=== PATIENT | female | born 1990 | race Caucasian/White ===

== ENCOUNTER 2017-05-27 06:33 | Day surgery (SDC) | payer MEDICAID ==
[~2017-05-27 06:33] MED LIST: GINK40TA2 PO; GINS100C PO; IBUP-1222 PO; MULT-6 PO; None at this Time; OXYC-302 PO; VITA150T PO
[2017-05-27] MEDS ORDERED: OXYMETAZOLINE NASAL SPRAY 0.05%, 15ML ONE (06:44)
[2017-05-27] MEDS ORDERED: LACTATED RINGERS 1,000 ML IV SCH (07:09)
[2017-05-27 07:25] VITALS: BP 111/76
[2017-05-27 08:20] LABS: HCG UR OBC PASS
[2017-05-27] MEDS ORDERED: FENTANYL PF 500 MCG/10ML ONE (08:44)
[2017-05-27] MEDS ORDERED: hydrALAzine 20 MG/ML, 1ML IV PRN (09:00)
[2017-05-27] MEDS ORDERED: LABETALOL 5MG/ML, 20ML IV PRN (09:00)
[2017-05-27] MEDS ORDERED: OXYcodone 5 MG/5 ML ORAL.SOL UDC PO PRN (09:00)
[2017-05-27] MEDS ORDERED: HYDROmorphone 1 MG/ML, 1ML IV PRN (09:00)
[2017-05-27] MEDS ORDERED: ACETAMINOPHEN 325 MG TABLET PO PRN (09:00)
[2017-05-27] MEDS ORDERED: ONDANSETRON 2MG/ML, 2ML IVPush PRN (09:00)
[2017-05-27] MEDS ORDERED: ACETAMINOPHEN 650 MG/20.3 ML UDC ONE (09:38)
[2017-05-27] MEDS ORDERED: OXYcodone 5 MG/5 ML ORAL.SOL UDC ONE (09:38)
[2017-05-27] MEDS ORDERED: FENTANYL PF 100 MCG/2ML ONE (09:38)
[2017-05-27] MEDS: FENTANYL PF 100 MCG/2ML IV PRN ×2 (09:40→09:52)
[2017-05-27] MEDS ORDERED: ONDANSETRON 2MG/ML, 2ML ONE ×2 (09:41→16:26)
[2017-05-27] MEDS ORDERED: PLEASE ENTER HEIGHT AND WEIGHT MC SCH (10:00)
[2017-05-27] MEDS ORDERED: DEXAMETHASONE 4 MG/ML, 5ML ONE (16:26)
[2017-05-27] MEDS ORDERED: METOCLOPRAMIDE 5 MG/ML, 2ML ONE (16:26)
[2017-05-27] MEDS ORDERED: SUCCINYLCHOLINE 20 MG/ML, 10ML ONE (16:26)
[2017-05-27] MEDS ORDERED: PROPOFOL 10 MG/ML, 20ML ONE (16:26)
[2017-05-27] MEDS ORDERED: ROCURONIUM 10 MG/ML ONE (16:26)
== END 2017-05-27 11:30 ==
LOC: OUT 06:33
PROVIDERS: ATTEND Otolaryngology
DX: J35.3 Hypertrophy of tonsils with hypertrophy of adenoids (principal); E11.9 Type 2 diabetes mellitus without complications; Z88.8 Allergy status to other drugs, medicaments and biological substances; Z91.040 Latex allergy status
CPT/HCPCS: 42821; 81025; 88304; 88329; J0330; J1100; J2405; J2704; J2765; J3010

== ENCOUNTER 2017-08-08 21:46 | Emergency (ER) | payer MEDICAID ==
[~2017-08-08] VITALS: Ht 175.3 cm; Wt 120.9 kg
[~2017-08-08 21:46] MED LIST changes: +GINK40TA PO; -GINK40TA2 PO; -GINS100C PO; +GINS100C3 PO
[2017-08-08 21:47] VITALS: BP 122/72
[2017-08-08] MEDS ORDERED: KETOROLAC 30 MG/1 ML ONE (22:16)
[2017-08-08] MEDS ORDERED: KETOROLAC 30 MG/1 ML IM ONE (22:30)
== END 2017-08-08 23:20 | disposition home or self-care (01) ==
LOC: ED 23:12
DX: S80.02XA Contusion of left knee, initial encounter (principal); G89.11 Acute pain due to trauma; F32.9 Major depressive disorder, single episode, unspecified; G43.909 Migraine, unspecified, not intractable, without status migrainosus; Z90.49 Acquired absence of other specified parts of digestive tract; W10.9XXA Fall (on) (from) unspecified stairs and steps, initial encounter; Y93.E6 Activity, residential relocation; Y92.89 Other specified places as the place of occurrence of the external cause; Y99.8 Other external cause status
CPT/HCPCS: 73564; 96372; 99284; J1885

== ENCOUNTER 2018-08-02 06:41 | Emergency (ER) | payer MEDICAID ==
[~2018-08-02] VITALS: Ht 172.7 cm; Wt 88.3 kg
[~2018-08-02 06:41] MED LIST changes: +OXYCODONE PO
[2018-08-02 06:44] VITALS: BP 104/70
== END 2018-08-02 09:47 | disposition home or self-care (01) ==
LOC: ED 09:10
DX: S93.491A Sprain of other ligament of right ankle, initial encounter (principal); S93.621A Sprain of tarsometatarsal ligament of right foot, initial encounter; G43.909 Migraine, unspecified, not intractable, without status migrainosus; E66.9 Obesity, unspecified; X50.1XXA Overexertion from prolonged static or awkward postures, initial encounter; Y93.K1 Activity, walking an animal; Y92.410 Unspecified street and highway as the place of occurrence of the external cause; Y99.8 Other external cause status
CPT/HCPCS: 99284

== ENCOUNTER → 2018-09-16 | Outpatient (CLI) | payer MEDICAID ==
[~2018-09-16] MED LIST changes: +OMNIPAQUE 350 MG/ML, 100ML BOTTLE ONE
== END | disposition home or self-care (01) ==
LOC: RAD 11:32
PROVIDERS: ATTEND Family Medicine
DX: N83.201 Unspecified ovarian cyst, right side (principal); Z90.49 Acquired absence of other specified parts of digestive tract
CPT/HCPCS: 74177; Q9967

== ENCOUNTER 2019-02-03 12:01 | Emergency (ER) | payer MEDICAID ==
[~2019-02-03] VITALS: Ht 172.7 cm; Wt 90.3 kg
[~2019-02-03 12:01] MED LIST changes: -OMNIPAQUE 350 MG/ML, 100ML BOTTLE ONE
[2019-02-03] MEDS ORDERED: KETOROLAC 30 MG/1 ML ONE (12:24)
--- NOTE | 2019-02-03 12:28 | NUR ---
TORADOL GIVEN PER ERP ORDER.
[2019-02-03] MEDS ORDERED: KETOROLAC 30 MG/1 ML IM ONE (12:30)
[2019-02-03 13:31] VITALS: BP 122/61
== END 2019-02-03 13:33 | disposition home or self-care (01) ==
LOC: ED 13:25
DX: S90.01XA Contusion of right ankle, initial encounter (principal); S90.31XA Contusion of right foot, initial encounter; F32.9 Major depressive disorder, single episode, unspecified; Z90.49 Acquired absence of other specified parts of digestive tract; X58.XXXA Exposure to other specified factors, initial encounter; Y93.89 Activity, other specified; Y92.009 Unspecified place in unspecified non-institutional (private) residence as the place of occurrence of the external cause; Y99.8 Other external cause status
CPT/HCPCS: 73610; 73630; 96372; 99283; J1885

== ENCOUNTER 2019-08-18 08:10 | Outpatient (CLI) | payer OTHER ==
[~2019-08-18 08:10] MED LIST changes: +VITA100T3 PO
[2019-08-18] MEDS ORDERED: ACET-1600 PO (08:52)
[2019-08-18 09:43] LABS: BASOPHILS # (AUTO) 0.03 x10^3/uL (0-0.1); BASOPHILS % (AUTO) 0 % (0-1); EOSINOPHILS # (AUTO) 0.12 x10^3/uL (0-0.4); EOSINOPHILS % (AUTO) 2 % (1-7); LYMPHOCYTES # (AUTO) 2.05 x10^3/uL (1-3.4); LYMPHOCYTES % (AUTO) 30 % (22-44); MD NO; MEAN CORPUSCULAR HEMOGLOBIN 29.5 pg (27.0-34.8); MEAN CORPUSCULAR HGB CONC 33.3 g/dL (32.4-35.8); MEAN CORPUSCULAR VOLUME 88.7 fL (80-100); MEAN PLATELET VOLUME 7.1 fL (7.4-10.4); MONOCYTES # (AUTO) 0.42 x10^3/uL (0.2-0.8); MONOCYTES % (AUTO) 6 % (2-9); NEUTROPHILS # (AUTO) 4.18 x10^3/uL (1.8-6.8); NEUTROPHILS % (AUTO) 62 % (42-75); PLATELET COUNT 292 x10^3/uL (130-400); RED BLOOD COUNT 4.51 x10^6/uL (3.82-5.3)
[2019-08-18 09:45] LABS: HCG UR SG 1.025 (1.003-1.030)
[2019-08-18 09:53] LABS: ANION GAP 3 mmol/L (5-15); CALCIUM 8.7 mg/dL (8.5-10.1); CHLORIDE 109 mmol/L (98-107); CREATININE 0.62 mg/dL (0.55-1.02)
== END 2019-08-18 23:59 | disposition home or self-care (01) ==
LOC: STAR 08:10
PROVIDERS: ATTEND Obstetrics & Gynecology Gynecology
DX: Z01.818 Encounter for other preprocedural examination (principal); N94.10 Unspecified dyspareunia; N83.209 Unspecified ovarian cyst, unspecified side; N80.9 Endometriosis, unspecified; N93.9 Abnormal uterine and vaginal bleeding, unspecified
CPT/HCPCS: 36415; 80048; 81025; 85025

== ENCOUNTER 2019-08-24 12:36 | Observation (INO) | payer OTHER ==
[~2019-08-24] VITALS: Ht 172.7 cm; Wt 98.0 kg
[~2019-08-24 12:36] MED LIST changes: +ACET-1600 PO
[2019-08-24] MEDS ORDERED: LACTATED RINGERS 1,000 ML IV SCH (12:50)
[2019-08-24] MEDS ORDERED: EPINEPHRINE 1 MG/ML, 1ML ONE (13:57)
[2019-08-24] MEDS ORDERED: BUPIVACAINE/PF 0.25% ONE (13:57)
[2019-08-24] MEDS ORDERED: INDIGO CARMINE 0.8%, 5ML ONE (13:58)
[2019-08-24] MEDS ORDERED: MIDAZOLAM 1 MG/ML, 2ML ONE (14:37)
[2019-08-24] MEDS ORDERED: FENTANYL PF 250 MCG/5ML ONE ×2 (14:37→16:17)
[2019-08-24] MEDS ORDERED: SCOPOLAMINE PATCH, 1.5MG PATCH.TD72 TD ONE (14:47)
[2019-08-24] MEDS ORDERED: ACETAMINOPHEN 500 MG TABLET ONE (14:47)
[2019-08-24] MEDS ORDERED: GABAPENTIN 300 MG CAPSULE ONE (14:47)
[2019-08-24] MEDS ORDERED: ALBUTEROL SULFATE 2.5 MG/3 ML NPPB PRN (16:00)
[2019-08-24] MEDS ORDERED: MEPERIDINE/PF 25MG/0.5ML IVPush PRN (16:00)
[2019-08-24] MEDS ORDERED: DIAZEPAM 5 MG/ML, 2ML IVPush PRN (16:00)
[2019-08-24] MEDS ORDERED: HYDROmorphone 2 MG/ML, 1ML IVPush PRN ×2 (16:00→17:30)
[2019-08-24] MEDS ORDERED: OXYcodone 5 MG/5 ML ORAL.SOL UDC PO PRN ×2 (16:00→17:30)
[2019-08-24] MEDS ORDERED: FENTANYL PF 100 MCG/2ML IV PRN (16:00)
[2019-08-24] MEDS ORDERED: PROMETHAZINE 25 MG/ML, 1ML IV PRN (16:00)
[2019-08-24] MEDS ORDERED: hydrALAzine 20 MG/ML, 1ML IV PRN (16:00)
[2019-08-24] MEDS ORDERED: LABETALOL 5MG/ML, 20ML IV PRN (16:00)
[2019-08-24] MEDS ORDERED: SUGAMMADEX 200 MG/2 ML IVPush ONE (17:02)
[2019-08-24] MEDS ORDERED: DEXAMETHASONE 4 MG/ML, 1ML ONE (17:04)
[2019-08-24] MEDS ORDERED: ROCURONIUM 10MG/ML,5ML ONE (17:04)
[2019-08-24] MEDS ORDERED: ONDANSETRON 2MG/ML, 2ML ONE (17:04)
[2019-08-24] MEDS ORDERED: SUCCINYLCHOLINE 20 MG/ML, 10ML ONE (17:04)
[2019-08-24] MEDS ORDERED: PROPOFOL 10 MG/ML, 20ML ONE (17:04)
[2019-08-24] MEDS ORDERED: CEFAZOLIN 1,000 MG ONE (17:04)
[2019-08-24] MEDS ORDERED: NEOSTIGMINE 1 MG/ML, 10ML ONE (17:04)
[2019-08-24] MEDS ORDERED: GLYCOPYRROLATE 0.2MG/1ML, 5ML ONE (17:04)
[2019-08-24] MEDS ORDERED: OXYcodone 5 MG/5 ML ORAL.SOL UDC ONE (17:11)
[2019-08-24] MEDS ORDERED: HYDROmorphone 1 MG/ML, 1ML VIAL ONE (17:11)
[2019-08-24] MEDS ORDERED: FENTANYL PF 100 MCG/2ML ONE (17:11)
[2019-08-24] MEDS ORDERED: KETOROLAC 30 MG/1 ML ONE (17:21)
[2019-08-24] MEDS ORDERED: morphine SULFATE 10 MG/ML, 1ML IV PRN (19:30)
[2019-08-24] MEDS ORDERED: KETOROLAC 30 MG/1 ML IV PRN (19:30)
[2019-08-24] MEDS ORDERED: ONDANSETRON 2MG/ML, 2ML IV PRN (19:30)
[2019-08-24 20:52] VITALS: BP 118/75
[2019-08-24] MEDS: SODIUM CHLORIDE FLUSH 10ML SYR IVF SCH (21:00)
[2019-08-24] MEDS ORDERED: ZOLPIDEM 5MG TABLET PO PRN (21:00)
[2019-08-24] MEDS: DOCUSATE 100 MG CAPSULE PO SCH (23:59)
[2019-08-25 00:10] VITALS: BP 88/60
[2019-08-25] MEDS: LACTATED RINGERS 1,000 ML IV SCH ×2 (01:00→07:27)
[2019-08-25] MEDS: KETOROLAC 30 MG/1 ML IV PRN ×2 (04:43→11:55)
[2019-08-25] MEDS ORDERED: ENOXAPARIN 40 MG/0.4 ML SQ SCH (06:00)
[2019-08-25] MEDS: SODIUM CHLORIDE FLUSH 10ML SYR IVF SCH (07:26)
[2019-08-25] MEDS: OXYcodone 5 MG/5 ML ORAL.SOL UDC PO PRN ×3 (07:26→11:55)
[2019-08-25] MEDS: DOCUSATE 100 MG CAPSULE PO SCH (07:26)
[2019-08-25 07:33] VITALS: BP 101/60
[2019-08-25] MEDS ORDERED: FLU VACC QS2019-20 36MOS UP/PF 0.5 ML IM-VACC ONE (11:00)
[2019-08-25 12:50] VITALS: BP 97/62
== END 2019-08-25 14:30 | disposition home or self-care (01) ==
LOC: OUT 12:36 → 4NE 18:54 → OUT 18:55 → 4NE 18:56 → DCLOUNGE 08-25 14:03
PROVIDERS: ADMIT Obstetrics & Gynecology Gynecology; ATTEND Obstetrics & Gynecology Gynecology
DX: N80.1 Endometriosis of ovary (principal); N93.9 Abnormal uterine and vaginal bleeding, unspecified; N94.10 Unspecified dyspareunia; Z98.84 Bariatric surgery status; D64.9 Anemia, unspecified; F32.9 Major depressive disorder, single episode, unspecified; N94.6 Dysmenorrhea, unspecified; G43.909 Migraine, unspecified, not intractable, without status migrainosus; Z23 Encounter for immunization
CPT/HCPCS: 58571; 81025; 88307; 90471; 90686; 96372; 96374; 96375; 96376; G0378; J0171; J0690; J1100; J1170; J1650; J1885; J2250; J2270; J2405; J2704; J3010; J3490; J7120; S2900; J2710; J0330

== ENCOUNTER 2019-08-30 17:55 | Emergency (ER) | payer OTHER ==
[~2019-08-30] VITALS: Ht 172.7 cm; Wt 98.0 kg
[2019-08-30 18:13] VITALS: BP 122/72
[2019-08-30] MEDS ORDERED: SODIUM CHLORIDE FLUSH 10ML SYR IVF ONE (18:30)
[2019-08-30 18:43] LABS: BASOPHILS # (AUTO) 0.05 x10^3/uL (0-0.1); BASOPHILS % (AUTO) 1 % (0-1); EOSINOPHILS # (AUTO) 0.37 x10^3/uL (0-0.4); EOSINOPHILS % (AUTO) 4 % (1-7); LYMPHOCYTES # (AUTO) 2.87 x10^3/uL (1-3.4); LYMPHOCYTES % (AUTO) 34 % (22-44); MD NO; MEAN CORPUSCULAR HEMOGLOBIN 29.9 pg (27.0-34.8); MEAN CORPUSCULAR HGB CONC 33.2 g/dL (32.4-35.8); MEAN CORPUSCULAR VOLUME 90.1 fL (80-100); MEAN PLATELET VOLUME 7.2 fL (7.4-10.4); MONOCYTES % (AUTO) 6 % (2-9); NEUTROPHILS # (AUTO) 4.61 x10^3/uL (1.8-6.8); NEUTROPHILS % (AUTO) 55 % (42-75); PLATELET COUNT 302 x10^3/uL (130-400); RED CELL DISTRIBUTION WIDTH 13.2 % (9.6-15.2)
[2019-08-30 18:56] LABS: ALANINE AMINOTRANSFERASE 37 U/L (12-78); ALBUMIN 3.4 g/dL (3.4-5.0); ANION GAP 5 mmol/L (5-15); CALCIUM 8.5 mg/dL (8.5-10.1); CHLORIDE 108 mmol/L (98-107); CREATININE 0.64 mg/dL (0.55-1.02)
[2019-08-30 18:58] LABS: ALKALINE PHOSPHATASE 83 U/L (45-117); BILIRUBIN,TOTAL 0.2 mg/dL (0.2-1.0); TOTAL PROTEIN 7.2 g/dL (6.4-8.2)
--- NOTE | 2019-08-30 19:01 | NUR ---
pt called to room from lobby
[2019-08-30 19:56] LABS: MICROSCOPIC NOT IND
[2019-08-30] MEDS ORDERED: OMNIPAQUE 350 MG/ML, 100ML BOTTLE ONE (19:56)
[2019-08-30 20:00] LABS: CULTURE INDICATED? NO
== END 2019-08-30 21:18 | disposition home or self-care (01) ==
LOC: ED 20:47
DX: K59.00 Constipation, unspecified (principal); I25.10 Atherosclerotic heart disease of native coronary artery without angina pectoris; E66.9 Obesity, unspecified; Z90.49 Acquired absence of other specified parts of digestive tract; Z87.891 Personal history of nicotine dependence
CPT/HCPCS: 36415; 71046; 74177; 80053; 81003; 85025; 99284; Q9967

== ENCOUNTER 2019-12-30 20:58 | Emergency (ER) | payer OTHER ==
[~2019-12-30] VITALS: Ht 172.7 cm; Wt 92.0 kg
[2019-12-30] MEDS ORDERED: MORPHINE SULFATE 4 MG/ML, 1ML ONE (21:09)
[2019-12-30] MEDS ORDERED: ONDANSETRON 2MG/ML, 2ML ONE (21:09)
--- NOTE | 2019-12-30 21:13 | NUR ---
Patient BIB [facility] s/p [facility]. Patient states she was looking for her dog and slipped down a bank on gravel. Patient c/o right hip pain and right elbow pain. Patient became dizzy afterward but states she gets dizzy often. Denies LOC or head trauma. Patient is in obvious pain. Respirations even and unlabored. No shortening or rotation noted. CMS present.
--- NOTE | 2019-12-30 21:14 | NUR ---
EMS REPORTS GIVING 100 MCG FENTANYL AND 4MG ZOFRAN DESKTOP SUPPORT MANAGER. PT PRESENTS W/ A PIV IN PLACE. PT REPORTS SHE WALKED FOR 2 HOURS POST FALL.
--- NOTE | 2019-12-30 21:15 | NUR ---
PT MEDICATED PER EMAR.
--- NOTE | 2019-12-30 21:17 | NUR ---
PT TO RAD.
[2019-12-30] MEDS ORDERED: MORPHINE SULFATE 4 MG/ML, 1ML IVPush PRN (21:30)
[2019-12-30] MEDS ORDERED: ONDANSETRON 2MG/ML, 2ML IVPush ONE (21:30)
[2019-12-30 21:33] VITALS: BP 123/41
--- NOTE | 2019-12-30 21:49 | NUR ---
ALL TESTS RESULTED. PT IS UP FOR RECHECK AT THIS TIME.
--- NOTE | 2019-12-30 21:51 | NUR ---
IN ROOM FOR RECHECK.
[2019-12-30] MEDS ORDERED: HYDROmorphone 1 MG/ML, 1ML INJ ONE (21:54)
[2019-12-30] MEDS ORDERED: HYDROmorphone 2 MG/ML, 1ML IVPush PRN (22:00)
--- NOTE | 2019-12-30 22:12 | NUR ---
PT PROVIDED W/ PANTS AFTER REPORTING SHE SOILED HERSELF.
--- NOTE | 2019-12-30 22:40 | NUR ---
PT AMBULATED W/ CRUTCHES STEADILY. VERBALIZED UNDERSTANDING OF DC INSTRUCTIONS.
== END 2019-12-30 22:41 | disposition home or self-care (01) ==
LOC: ED 22:37
DX: S76.011A Strain of muscle, fascia and tendon of right hip, initial encounter (principal); G43.909 Migraine, unspecified, not intractable, without status migrainosus; E66.9 Obesity, unspecified; I25.10 Atherosclerotic heart disease of native coronary artery without angina pectoris; Z90.49 Acquired absence of other specified parts of digestive tract; Z90.89 Acquired absence of other organs; Z68.30 Body mass index [BMI] 30.0-30.9, adult; W19.XXXA Unspecified fall, initial encounter; Y93.01 Activity, walking, marching and hiking; Y92.89 Other specified places as the place of occurrence of the external cause; Y99.8 Other external cause status
CPT/HCPCS: 73502; 96374; 96375; 99284; J1170; J2270; J2405

== ENCOUNTER 2020-07-21 09:49 | Emergency (ER) | payer OTHER ==
[~2020-07-21] VITALS: Ht 175.3 cm; Wt 97.0 kg
[2020-07-21 09:51] VITALS: BP 109/62
[2020-07-21] MEDS ORDERED: KETOROLAC 30 MG/1 ML ONE (10:12)
[2020-07-21] MEDS ORDERED: BENZONATATE 100 MG CAPSULE ONE (10:29)
[2020-07-21] MEDS ORDERED: KETOROLAC 30 MG/1 ML IM ONE (10:30)
[2020-07-21] MEDS ORDERED: BENZONATATE 100 MG CAPSULE PO ONE (10:30)
[2020-07-21 10:53] LABS: BASOPHILS % (AUTO) 0 % (0-1); EOSINOPHILS % (AUTO) 1 % (1-7); LYMPHOCYTES % (AUTO) 36 % (22-44); MEAN CORPUSCULAR HEMOGLOBIN 28.9 pg (27.0-34.8); MEAN PLATELET VOLUME 7.7 fL (7.4-10.4); MONOCYTES % (AUTO) 9 % (2-9); NEUTROPHILS % (AUTO) 54 % (42-75); PLATELET COUNT 153 x10^3/uL (130-400); RED BLOOD COUNT 4.53 x10^6/uL (3.82-5.3)
[2020-07-21 10:55] LABS: MD NO
[2020-07-21 11:01] LABS: ALANINE AMINOTRANSFERASE 91 U/L (12-78); ALBUMIN 3.6 g/dL (3.4-5.0); ANION GAP 5 mmol/L (5-15); CALCIUM 8.7 mg/dL (8.5-10.1); CHLORIDE 109 mmol/L (98-107); CREATININE 0.62 mg/dL (0.55-1.02)
[2020-07-21 11:03] LABS: ALKALINE PHOSPHATASE 108 U/L (45-117); BILIRUBIN,TOTAL 0.4 mg/dL (0.2-1.0); TOTAL PROTEIN 7.3 g/dL (6.4-8.2)
--- NOTE | 2020-07-21 12:03 | NUR ---
Patient given discharge instructions and they have confirmed that they understand the instructions. Patient ambulatory with steady gait.
== END 2020-07-21 12:04 | disposition home or self-care (01) ==
LOC: ED 10:45
DX: J06.9 Acute upper respiratory infection, unspecified (principal); B97.89 Other viral agents as the cause of diseases classified elsewhere; Z90.49 Acquired absence of other specified parts of digestive tract; Z87.891 Personal history of nicotine dependence
CPT/HCPCS: 36415; 71045; 80053; 85025; 93005; 96372; 99285; J1885

== ENCOUNTER 2021-02-08 16:50 | Emergency (ER) | payer OTHER ==
[~2021-02-08] VITALS: Ht 175.3 cm; Wt 104.8 kg
[~2021-02-08 16:50] MED LIST changes: -OXYC-302 PO; +OXYC1TAB14 PO
--- NOTE | 2021-02-08 18:16 | NUR ---
RESPIRATORY CARE ASSISTANT: PT TO ROOM FROM LOBBY.
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
--- NOTE | 2021-02-08 18:59 | NUR ---
REPORT TO PANFILO PACHECO
[2021-02-08 20:11] LABS: BASOPHILS % (AUTO) 1 % (0-1); EOSINOPHILS % (AUTO) 1 % (1-7); LYMPHOCYTES % (AUTO) 28 % (22-44); MEAN CORPUSCULAR HEMOGLOBIN 29.1 pg (27.0-34.8); MEAN CORPUSCULAR HGB CONC 34.2 g/dL (32.4-35.8); MEAN PLATELET VOLUME 7.2 fL (7.4-10.4); MONOCYTES % (AUTO) 6 % (2-9); NEUTROPHILS % (AUTO) 65 % (42-75); PLATELET COUNT 308 x10^3/uL (130-400); RED BLOOD COUNT 4.54 x10^6/uL (3.82-5.3); RED CELL DISTRIBUTION WIDTH 13.8 % (9.6-15.2)
[2021-02-08 20:12] LABS: MD NO
[2021-02-08 20:22] LABS: ALANINE AMINOTRANSFERASE 42 U/L (12-78); ALBUMIN 3.7 g/dL (3.4-5.0); ANION GAP 5 mmol/L (5-15); CHLORIDE 106 mmol/L (98-107); CREATININE 0.71 mg/dL (0.55-1.02)
[2021-02-08 20:25] LABS: ALKALINE PHOSPHATASE 97 U/L (45-117); BILIRUBIN,TOTAL 0.7 mg/dL (0.2-1.0); TOTAL PROTEIN 7.3 g/dL (6.4-8.2)
[2021-02-08 20:56] LABS: MICROSCOPIC NOT IND
[2021-02-08 21:55] VITALS: BP 132/81
== END 2021-02-08 21:57 | disposition home or self-care (01) ==
LOC: ED 21:27
DX: R10.32 Left lower quadrant pain (principal); G43.909 Migraine, unspecified, not intractable, without status migrainosus; I25.10 Atherosclerotic heart disease of native coronary artery without angina pectoris; Z90.49 Acquired absence of other specified parts of digestive tract; Z90.89 Acquired absence of other organs; Z87.891 Personal history of nicotine dependence
CPT/HCPCS: 36415; 80053; 81003; 85025; 99283